=== PATIENT | female | born 1970 | race Caucasian/White ===

== ENCOUNTER 2017-05-13 04:52 | Emergency (ER) | payer OTHER ==
[~2017-05-13] VITALS: Ht 175.3 cm; Wt 159.0 kg
[~2017-05-13 04:52] MED LIST: IBUP-232 PO; LYSI500C2 PO; OMEG100037 PO; PROBCAP4 PO; ROBA750T PO; ZOVI200C24 PO
[2017-05-13 04:55] VITALS: BP 212/100; PULSE 66; RESP 20; TEMP 98.4; O2SAT 98
[2017-05-13 06:10] VITALS: BP 147/83; PULSE 67; RESP 18; O2SAT 97
[2017-05-13] MEDS ORDERED: ACYC400T PO (06:10)
[2017-05-13] MEDS ORDERED: LACTCAP8 PO (06:10)
[2017-05-13] MEDS ORDERED: LYSI1000 (06:10)
[2017-05-13] MEDS ORDERED: GARL1CAP6 (06:10)
[2017-05-13] MEDS ORDERED: ACETAMINOPHEN 325 MG TAB PO ONE (07:15)
[2017-05-13 07:24] VITALS: BP 162/81; PULSE 77; RESP 18; O2SAT 96
--- NOTE | 2017-05-13 07:24 | PD ---
HPI Chief Complaint: Headache Time Seen by Provider: 07:04 Travel History International Travel<30 days: No Contact w/Intl Traveler<30days: No Traveled to known affect area: No History of Present Illness HPI 46-year-old female presents with frontal headache that started at 9 PM and just gradually got worse. She states she took some olive oil extract for the inflammation and she starting to feel better. She states she has been told she had high blood pressure in the past but when she monitored it more at home and it ran in the 140s so she hasn't been put on medication really. She states when she sees her primary he mainly wants her to get mammograms and she doesn't know why. She states she feels a little nauseous but denies any other concurrent complaints. Quality of pain is pressure. Severity is now mild. She states no specific modifying factors other than the lights. Duration is since 9 PM. 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[place], CAMI SYNDROME, ADRENAL) Gastrointestinal Disorders: Yes (BLOATING) Genitourinary: Yes (HX OF UTI WITH BLEEDING) Hepatitis: No Hiatal Hernia: Yes Hypertension: Yes (?PRE) Immune Disorder: Yes (ESPTEIN BOYD) Medical other: Yes (LYME DIS., ) Musculoskeletal: Yes (NECK/ BACK PAIN, ARTHRITIS) Neurologic: Yes (HX VERTIGO) Psychiatric: No Reproductive: Yes (NUMEROUS CYSTS;ENDOMETRIOSIS) Respiratory: Yes (SLEEP APNEA/ NO CPAP) Migraines: Yes Sleep Apnea: Yes Thyroid Disease: Yes (NODULES/ CYST) ?: Not Dilation and Curettage (D&C): Yes (x2) Past Surgical History Abdominal Surgery: Yes (VENTRAL HERNIA REP., LAP. BARBARA) AICD: No Cholecystectomy: Yes Endocrine Surgery: Yes (PARTIAL THYROIDECTOMY) Gynecologic Surgery: Yes (ENDOMETRIAL CYST EXC,ECTOPIC ,HYSTERECTOMY) Hysterectomy: Yes Joint Replacement: No Oral Surgery: Yes (TONSILLECTOMY) Pacemaker: No Tonsillectomy: Yes Other Surgery: Yes Social History Alcohol Use: No Tobacco Use: No Substance Use: No Allergies-Medications (Allergen,Severity, Reaction): Coded Allergies: Sulfa (Sulfonamide Antibiotics) (Unverified Allergy, Severe, HIVES, CLOSES BREATHING, 05/13/17) shellfish derived (Unverified Allergy, Severe, Swelling, 05/13/17) egg (Unverified Adverse Reaction, Intermediate, SINUSITIS, 05/13/17) Uncoded Allergies: BANANAS (Adverse Reaction, Severe, SINUSITIS, 09/12/13) Reported Meds & Prescriptions Reported Meds & Active Scripts Active Skelaxin (Metaxalone) 800 Mg Tablet 800 Mg PO HS PRN Reported Probiotic (Lactobacillus Acidophilus) Unknown Strength Cap Unknown Dose PO TIDAC Lysine (Lysine HCl) Unknown Strength Tab Unknown Dose Garlic Unknown Strength Capsule Unknown Dose Acyclovir 400 Mg Tab 400 Mg PO TID Review of Systems Except as stated in HPI: all other systems reviewed are Neg Physical Exam Narrative GENERAL: Well-nourished, well-developed patient. Well-appearing SKIN: Warm and dry. HEAD: Normocephalic and atraumatic. EYES: No injection or drainage. Pupils equal and reactive ENT: No nasal drainage noted. NECK: Supple, trachea midline. No meningeal signs CARDIOVASCULAR: Regular rate and rhythm RESPIRATORY: Breath sounds equal bilaterally. No accessory muscle use. GASTROINTESTINAL: Abdomen soft, non-tender, nondistended. EXTREMITIES: No edema. BACK: Nontender without obvious deformity. NEUROLOGICAL: Awake and alert. Motor and sensory grossly within normal limits. Normal speech. 5 out of 5 in all 4 extremities, equal grasp bilaterally, rapid alternating intact Data Data Last Documented VS Vital Signs Date Time Temp Pulse Resp B/P (MAP) Pulse Ox O2 Delivery O2 Flow Rate FiO2 05/13/17 09:18 72 20 136/70 (92) 98 Room Air 05/13/17 04:55 98.4 Orders Orders Acetaminophen (Tylenol) (05/13/17 07:15) Ct Brain W/O Iv Contrast(Rout) (05/13/17 ) [facility] Medical Decision Making Medical Screen Exam Complete: Yes Emergency Medical Condition: Yes Medical Record Reviewed: Yes (past history confirmed) Interpretation(s) Last [address] 05/13/17 0000 Signed Impressions: Service Date/Time: Saturday, May 13, 2017 07:28 - CONCLUSION: No acute disease. Yong Gonzalez MD Differential Diagnosis Tension, migraine, cluster, intercranial Narrative Course Will check CT brain given initial high blood pressure and reevaluate. Patient only wanting Tylenol right now for pain on recheck feeling better, bp 136/70 on my reassessment at 902, Patient denies any new complaints and states that they are feeling better. Patient happy with care, all questions answered. Patient knows that follow up is incumbent on them and to return to the emergency room immediately if new or worsening symptoms develop. Patient given strict return precautions, vitals reviewed and are normal , agrees to further workup as an outpatient. Diagnosis Primary Impression: Cephalalgia Qualified Codes: R51 - Headache Patient Instructions: General Instructions Additional Instructions: keep blood pressure log, return as needed, tylenol as needed Med/Other Pt SpecificInfo: Prescription(s) given Scripts Metaxalone (Skelaxin) 800 Mg Tablet 800 MG PO HS Y for PAIN SCALE 1 TO 10, #10 Prov: Edith Velázquez MD 05/13/17 Disposition: 01 DISCHARGE HOME Condition: Stable Edith Velázquez MD May 13, 2017 07:23
--- NOTE | 2017-05-13 07:52 | RADRPT ---
EXAM DATE/TIME: 05/13/2017 07:28 [place] COMPARISON: No previous studies available for comparison. INDICATIONS : Cephalgia. RADIATION DOSE: 42.95 CTDIvol (mGy) MEDICAL HISTORY : Cardiovascular disease. Hypertension. SURGICAL HISTORY : Cholecystectomy. Hysterectomy. ENCOUNTER: Initial ACUITY: 1 day PAIN SCALE: 3/10 LOCATION: Bilateral cranial TECHNIQUE: Multiple contiguous axial images were obtained of the head. Using automated exposure control and adj ustment of the mA and/or kV according to patient size, radiation dose was kept as low as reasonably a chievable to obtain optimal diagnostic quality images. DICOM format image data is available electro nically for review and comparison. FINDINGS: CEREBRUM: The ventricles are normal for age. No evidence of midline shift, mass lesion, hemorrhage or acute in farction. No extra-axial fluid collections are seen. POSTERIOR FOSSA: The cerebellum and brainstem are intact. The 4th ventricle is midline. The cerebellopontine angle i s unremarkable. EXTRACRANIAL: The visualized portion of the orbits is intact. SKULL: The calvaria is intact. No evidence of skull fracture. CONCLUSION: No acute disease. Yong Gonzalez MD on May 13, 2017 at 7:50 Board Certified Radiologist. This report was verified electronically.
[2017-05-13] MEDS ORDERED: SKEL800T21 PO (09:04)
[2017-05-13 09:18] VITALS: BP 136/70; PULSE 72; RESP 20; O2SAT 98
== END 2017-05-13 09:43 | disposition home or self-care (01) ==
LOC: NEPC 04:52
DX: R51 Headache (principal)
CPT/HCPCS: 70450; 99285